=== PATIENT | female | born 1985 | race Caucasian/White ===

== ENCOUNTER 2016-09-22 22:16 | Inpatient (IN) | payer MEDICAID ==
[2016-09-22 22:23] VITALS: BMI 28.8
[2016-09-22] MEDS ORDERED: Penicillin G 5 Million Unit Vial IVPB ONE ×2 (22:41→23:26)
[2016-09-22] MEDS: Lactated Ringer's 1,000 ML IV SCH (22:45)
[2016-09-22 23:15] LABS: BASO % 0.4 % (0.0-2.0); EOS % 0.2 % (0.0-4.0); HEMATOCRIT 37.6 % (34.0-47.0); LYMPH # 1.9 K/uL (1.0-4.3); LYMPH % 31.6 % (20.0-40.0); MEAN CELL VOLUME 77.1 fL (81.0-99.0); MEAN CORPUSCULAR HEMOGLOBIN 24.9 pg (27.0-31.0); MEAN CORPUSCULAR HGB CONC 32.3 g/dL (33.0-37.0); MEAN PLATELET VOLUME 8.4 fL (7.2-11.7); MONO # 0.6 K/uL (0.0-0.8); MONO % 10.7 % (0.0-10.0); RED CELL DISTRIBUTION WIDTH 15.2 % (11.5-14.5); WHITE BLOOD COUNT 5.9 K/uL (4.8-10.8)
--- NOTE | 2016-09-22 23:19 | OBHP ---
Datetime: 09/22/2016 22:49 IP Adm Impression: Postterm, intrauterine ; No Active Labor IP Adm Impression Other: Decreased amnionic fluid IP Admit Plan: Admit to unit IP Admit Plan Other: cervical ripening Admit Comment, IP Provider: 31 yo , LMP 12/16/15, ELISSA 09/22/16, EGA 40 weeks, referred by Tyler Silva MD, for IOL and delivery due to decreased amnionic fluid. (+) AFM; denies LOF, VB; (+) occ ctx - onset after cervical exam during visit earlier today. Pain scale 5/10; although no w, no contractions. Patient now c/o palpitations: denies dyspnea on exertion; dizziness. Palpitations associated when lying supine - improved when turns on her side. Patient did not tell primary OB prov ider of this development; most recent Ob visit was earlier today. care: Dr. Stephania Chen; a bnormal GCT 182; normal 3hr GTT; GBS (+). P Ob: x 2: 2008, male, 5lb 11oz. 2013, female, 7lb 2oz; both, at [facility]; no complicat ions P [employer]: 13 x monthly x 4 PMH: denies PSH: denies NKDA Meds: PNV, Vit D and B12 Soc Hx: denies tobacco, illicit drug or EtOH use. x 9 years. Works as a [employer]. Fam Hx: Mother alive 61 y.o. - HTN, DM. Father - hep C. No known fam h/o cancer P.E.: as above. WD, in NAD. Appears slightly anxious. Awake, alert, oriented to time, person and p lace. and her brother present Assessment: 31 yo P2, 40 weeks, IOL and delivery for decreased amnionic fluid. New onset palpitati ons x 1 week. Same discussed with Dr. Chen who wants the followng: a) EKG;; b) IV hydration; 3) p ain madication. Category 1 tracing. GBS (+). Clinically stable. Plan: 1) Admit 2) NPO 3) IVFs 4) Continuous EFM 5) Admission labs 6) penicillin 7) EKG 8) cytotec 50 micrograms p.o. Q 4 hours, x 2 doses 9) pain medicatoins, upon request 10) Anticipate vaginal delivery - as per Dr. Chen Pelvic Type - PN: Adequate Extremities - PN: Normal Abdomen - PN: Normal Back - PN: Not Done Breast - PN: Not Done Lungs - PN: Normal Heart - PN: Abnormal Thyroid - PN: Not Done Neurologic - PN: Normal HEENT - PN: Normal General - PN: Normal FHR - Baseline A Provider: 160 Contraction Comments Provider: occasional Comments, ACOG Physical Exam: Skin: warm, dry, intact Cardiac: sinus tachycardia Lungs: CTA bilaterally Abdomen: gravid. Soft. Non tender. Fundal height 35 cm Extremities: no calf tenderness bilaterally. 1+ pedal edema, bilaterally; no cyanosis all other systems reviewed - as per HPI Gestation - Est Wks by US: 40.0 IP Hx Assessment: The History has been Reviewed and is Current Vital Signs Provider: Reviewed Vital Signs Provider Details: Elevated H.R. noted; Dr. Chen made aware IP Indication for Induction Oth: Decreased amnionic fluid IP Chief Complaint: Other NICHD Variability Prov Fetus A: Moderate 6-25bpm NICHD Accel Fetus A IP Provider: [id number] FHR Category Provider Fetus A: Category I NICHD Decel Fetus A IP Provider: None Dilatation, Provider: 2-3 Effacement, Provider: 30 Station, Provider: -3 Genitourinary Exam: Normal DTRs - PN: Normal
[2016-09-22 23:34] LABS: CHLORIDE 101 mmol/L (98-107)
[2016-09-22 23:35] LABS: RBC URINE 1 /hpf (0-3); URINE BACTERIA OCC (<OCC); URINE BILIRUBIN NEGATIVE (NEGATIVE); URINE BLOOD NEGATIVE (NEGATIVE); URINE CALCIUM OXALATE CRYSTALS OCC /hpf (<OCC); URINE COLOR Yellow (YELLOW); URINE GLUCOSE (UA) NORMAL (Normal); URINE KETONE NEGATIVE (NEGATIVE); URINE LEUKOCYTE ESTERASE NEG Leu/uL (Negative); URINE PROTEIN 1+ mg/dL (NEGATIVE); URINE UROBILINOGEN NORMAL mg/dL (0.2-1.0); WBC URINE 3 /hpf (0-5)
[2016-09-22 23:35] LABS: POTASSIUM 4.2 mmol/L (3.6-5.2); SODIUM 132 mmol/L (132-148)
[2016-09-22 23:37] LABS: ALB/GLOB RATIO 1.1 (1.0-2.1); AST/SGOT 25 U/L (14-36); BILIRUBIN,TOTAL 0.5 mg/dL (0.2-1.3); BLOOD UREA NITROGEN 14 mg/dL (7-17); CARBON DIOXIDE 20 mmol/L (22-30); GFR AFRICAN-AMERICAN > 60; TOTAL PROTEIN 7.4 g/dL (6.3-8.3)
[2016-09-22 23:38] LABS: ALKALINE PHOSPHATASE 176 U/L (38-126); ALT/SGPT 14 U/L (9-52); GLUCOSE,RANDOM 83 mg/dL (65-105)
[2016-09-22 23:56] LABS: INR 0.9
[2016-09-23] MEDS: Penicillin G Potassium 2.5 MU in Dextrose 5% In Water 50 ML IVPB SCH ×2 (02:59→06:56)
--- NOTE | 2016-09-23 03:40 | CP.PCM.CON ---
<Nate MURILLOBrandi - Last Filed: 09/23/16 03:40> History of Present Illness - History of Present Illness History of Present Illness: Patient is a 31 year old female at 40 weeks gestation, sent by PMD for induction of labor. Hospitalist service was consulted due to patient's symptoms of shortness of breath and palpitations with suspicion for pulmonary embolus. Patient reports that the shortness of breath started one week ago. She describes this as intermittent. She states she notices it while sitting and notices it when the baby is moving around. Patient states the sensation goes away on its own and has lasted at maximum for five minutes. Patient states that she has also had palpitations for the past week. She states that this occurs sometimes while walking, sometimes while sitting, at most once a day. She states it lasts for a couple of minutes before going away. Patient denies chest pain, dizziness, nausea, vomiting. Patient denies recent travel or illness. Patient denies similar symptoms with prior pregnancies. PMD: Stephania Chen PMHx: denies PSHx: denies Fam Hx: mother with HTN, DM Social Hx: denies tobacco, alcohol, drugs; lives with and children Meds: vitamin D, vitamin B12 Review of Systems - Constitutional Constitutional: absent: Chills, Fever, Headache - EENT Eyes: absent: Blurred Vision Ears: absent: Dizziness - Cardiovascular Cardiovascular: Dyspnea, Dyspnea on Exertion, Palpitations. absent: Chest Pain , Chest Pain at Rest, Diaphoresis - Respiratory Respiratory: Dyspnea. absent: Cough - Gastrointestinal Gastrointestinal: absent: Abdominal Pain, Nausea, Vomiting - Genitourinary Genitourinary: absent: Difficulty Urinating - Reproductive: Female Reproductive:Female: Other (in labor at 40 weeks gestation) - Musculoskeletal Musculoskeletal: absent: Joint Swelling - Integumentary Integumentary: absent: Rash, Skin Pain - Neurological Neurological: absent: Dizziness, Focal Weakness Past Patient History - Past Social History Chewing Tobacco Use: No - PSYCHIATRIC Hx Depression: No Hx Emotional Abuse: No Hx Physical Abuse: No Hx Substance Use: No Meds Allergies/Adverse Reactions: Allergies Allergy/AdvReac Type Severity Reaction Status Date / Time No Known Allergies Allergy Verified 08/03/12 13:05 - Medications Medications: Current Medications Lactated Ringer's (Lactated Ringer's) 1,000 mls @ 125 mls/hr IV .Q8H [facility] Last Admin: 09/22/16 22:45 Dose: 125 mls/hr Penicillin G Potassium 2.5 mu/ (Dextrose) 50 mls @ 100 mls/hr IVPB Q4H [facility] Last Admin: 09/23/16 02:59 Dose: 100 mls/hr Physical Exam - Constitutional Appears: Non-toxic, No Acute Distress - Head Exam Head Exam: ATRAUMATIC, NORMOCEPHALIC - Eye Exam Eye Exam: EOMI, Normal appearance, PERRL - ENT Exam ENT Exam: Mucous Membranes Moist - Respiratory Exam Respiratory Exam: Clear to Auscultation Bilateral. absent: Rales, Rhonchi, Wheezes - Cardiovascular Exam Cardiovascular Exam: +S1, +S2 - GI/Abdominal Exam GI & Abdominal Exam: Normal Bowel Sounds, Soft Additional comments: gravid uterus - Extremities Exam Extremities exam: Positive for: pedal edema (bilateral edema, non tender to palpation, negative Kraig's sign). Negative for: calf tenderness - Neurological Exam Neurological exam: Alert - Psychiatric Exam Psychiatric exam: Normal Affect - Skin Skin Exam: Dry, Warm Results - Labs Result Diagrams: 09/22/16 23:11 09/22/16 23:00 Labs: Laboratory Results - last 24 hr 09/22/16 09/22/16 09/22/16 23:00 23:11 23:59 WBC 5.9 RBC 4.87 Hgb 12.1 Hct 37.6 MCV 77.1 L MCH 24.9 L MCHC 32.3 L RDW 15.2 H Plt Count 239 MPV 8.4 Neut % (Auto) 57.1 Lymph % (Auto) 31.6 Winston % (Auto) 10.7 H Eos % (Auto) 0.2 Baso % (Auto) 0.4 Neut # 3.4 Lymph # 1.9 Winston # 0.6 Eos # 0.0 Baso # 0.0 PT 10.5 INR 0.9 APTT 25 Fibrinogen 473 H Sodium 132 Potassium 4.2 Chloride 101 Carbon Dioxide 20 L Anion Gap 15 BUN 14 Creatinine 0.5 L Est GFR ( Amer) > 60 Est GFR (Non-Af Amer) > 60 Random Glucose 83 Calcium 9.0 Total Bilirubin 0.5 AST 25 ALT 14 Alkaline Phosphatase 176 H D Total Protein 7.4 Albumin 3.9 Globulin 3.5 Albumin/Globulin Ratio 1.1 Urine Color Yellow Urine Clarity Hazy Urine pH 6.0 Ur Specific Powder[place] 1.030 Urine Protein 1+ H Urine Glucose (UA) Normal Urine Ketones Negative Urine Blood Negative Urine Nitrate Negative Urine Bilirubin Negative Urine Urobilinogen Normal Ur Leukocyte Esterase Neg Urine WBC (Auto) 3 Urine RBC (Auto) 1 Ur Squamous Epith Cells 1 Calcium Oxalate Crystal Occ H Urine Bacteria Occ H HIV 1&2 Antibody Screen Negative Blood Type AB POSITIVE Antibody Screen Negative Assessment & Plan - Assessment and Plan (Free Text) Assessment: Hospitalist service was consulted for suspicion of pulmonary embolus based on reported symptoms of shortness of breath and palpitations. On examination, patient was not experiencing these symptoms and was resting comfortably. Patient stated that she only experienced these symptoms when she felt the fetus moving and were not persistent, which would make pulmonary embolus less likely as she should have more persistent rather than intermittent symptoms related to movements. Please re-consult as necessary. Patient seen and examined with attending physician, plan discussed with attending physician Dr. Huerta. <Sabas Huerta P - Last Filed: 09/28/16 20:20> Results - Vital Signs Recent Vital Signs: Last Vital Signs Temp 97 F L 09/24/16 15:00 Pulse 75 09/24/16 15:00 Resp 20 09/24/16 15:00 BP 101/62 09/24/16 15:00 Pulse Ox 98 09/24/16 15:00 - Labs Result Diagrams: 09/24/16 06:05 09/24/16 06:05 Attending/Attestation - Attestation I have personally seen and examined this patient.: Yes I have fully participated in the care of the patient.: Yes I have reviewed all pertinent clinical information: Yes
[2016-09-23] MEDS ORDERED: Oxytocin 30 UNIT 500 ML IV ONE (04:03)
[2016-09-23] MEDS ORDERED: Bupivacaine 0.125%/FentaNYL 200 ML EPI ONE (05:28)
[2016-09-23] MEDS ORDERED: Oxytocin 30 UNIT 500 ML IV PRN (05:34)
[2016-09-23] MEDS ORDERED: Bupivacaine HCl 0.25% PF (10 ml) Inj ONE (05:42)
[2016-09-23] MEDS ORDERED: Oxytocin 20 units in LR 2,000 ML IV ONE (06:41)
[2016-09-23] MEDS: Lactated Ringer's 1,000 ML IV SCH (06:56)
--- NOTE | 2016-09-23 07:35 | OBDS ---
DELIVERY PERSONNEL Delivery Doctor: Twyla Ordonez MD Law Enforcement Officer: Meche Cardona RN Anesthesiologist: Fang Quinn MD MATERNAL INFORMATION Delivery Anesthesia: Epidural Medications in Delivery: Methergine 0.2mg IM@0717am; Pitocin 30 units IV Estimated Blood Loss (ml): 150 Placenta Cultured: No Maternal Complications: None RN Comments: Liveborn Baby Boy. 9-9. Provider Comments: [2002] for induction of labor due to decreased amount of amniotic fluid at t erm 40.1 weeks delivered spontaneously per vagina to a live baby boy 9/9 with an intact perin eum. placenta expelled spontaneously intact, uterus firm and hard. EBL 150 CC. patient had a continou s epidural anesthesia. LABOR SUMMARY EDC: 09/21/2016 00:00 No. Babies in Womb: 1 Attempted: No Labor Anesthesia: Epidural LABOR INFORMATION Reason for Induction: Oligohydramnios Onset of Labor: 09/23/2016 00:00 Complete Dilatation: 09/23/2016 06:38 Cervical Ripening Agents: Cytotec @ (Annotations: 50 mcg) Oxytocin: Induction Group B Beta Strep: Positive Antibiotics # of Doses: 3 Antibiotics Time of Last Dose: 0651 Steroids Given: None Reason Steroids Not Administered: Not Applicable MEMBRANES Membranes Rupture Method: Spontaneous Rupture of Membranes: 09/23/2016 07:09 Length of Rupture (hrs): 0.02 Amniotic Fluid Color: Clear Amniotic Fluid Amount: Small Amniotic Fluid Odor: Normal STAGES OF LABOR Stage 1 hrs: 6 Stage 1 min: 38 Stage 2 hrs: 0 Stage 2 min: 32 Stage 3 hrs: 0 Stage 3 min: 6 Total Time in Labor hrs: 7 Total Time in Labor min: 16 VAGINAL DELIVERY Episiotomy: None Laceration Extension: N/A Laceration Type: None Laceration Repair: Not Applicable Initial Vag Sponge Count: 10 Final Vag Sponge Count: 10 Initial Vag Sharps Count: 0 Final Vag Sharps Count: 0 Sponge Count Correct: Yes; Vaginal Sweep Performed Sharps Count Correct: N/A Count Comment: no sharp used. BABY A INFORMATION Delivery Date/Time: 09/23/2016 07:10 Method of Delivery: Vaginal Born in Route : No : N/A Forceps: N/A Vacuum Extraction: N/A Shoulder Dystocia : No SHOULDER DYSTOCIA BABY A Infant Delivery Date/Time: 09/23/2016 07:10 PRESENTATION/POSITION BABY A Presentation: Cephalic Cephalic Presentation: Vertex Vertex Position: Left Occipital Anterior Breech Presentation: N/A PLACENTA INFORMATION BABY A Placenta Delivery Time : 09/23/2016 07:16 Placenta Method of Delivery: Spontaneous Placenta Status: Delivered SCORES BABY A Heart Rate 1 min: >100 bpm Resp Effort 1 min: Good Cry Reflex Irritability 1 min: Cough or Sneeze or Pulls Away Muscle Tone 1 min: Active Motion Color 1 min: Body [place], Extremities Blue Resuscitation Effort 1 min: N/A SCORE 1 MIN: 9 Heart Rate 5 min: >100 bpm Resp Effort 5 min: Good Cry Reflex Irritability 5 min: Cough or Sneeze or Pulls Away Muscle Tone 5 min: Active Motion Color 5 min: Body [place], Extremities Blue Resuscitation Effort 5 min: N/A SCORE 5 MIN: 9 INFORMATION BABY A Gestational Age at Delivery: 40.2 Gestational Status: Post-term Infant Outcome : Liveborn Infant Condition : Stable Sex: Male IDENTIFICATION/MEDS BABY A ID Band Number: [id number] ID Band Location: Left Leg; Left Arm Sensor Applied: Yes Sensor Number: [id number] Sensor Location : Cord Clamp Vitamin K Given : Not Given Erythromycin Given: Not Given WEIGHT/LENGTH BABY A Birthweight (gms): 2925 Infant Weight (lb): 6 Infant Weight (oz): 7 Length Inches: 19.50 Length cms: 49.5 CORD INFORMATION BABY A No. Cord Vessels: 3 Nuchal Cord : N/A Cord Blood Taken: Yes Infant Suction: Mouth; Nose
[2016-09-23] MEDS: Multiple Vitamins Tab PO SCH (09:47)
[2016-09-23] MEDS: Bisacodyl 5mg EC Tab PO SCH (09:58)
[2016-09-23] MEDS ORDERED: Bisacodyl 5mg EC Tab PO SCH (10:00)
[2016-09-23 16:18] LABS: HEMATOCRIT 37.6 % (34.0-47.0); MEAN CELL VOLUME 76.2 fL (81.0-99.0); MEAN CORPUSCULAR HEMOGLOBIN 25.5 pg (27.0-31.0); MEAN CORPUSCULAR HGB CONC 33.4 g/dL (33.0-37.0)
[2016-09-23 16:27] LABS: WHITE BLOOD COUNT 9.8 K/uL (4.8-10.8)
[2016-09-23 16:32] VITALS: O2SAT 98
--- NOTE | 2016-09-23 17:26 | CP.PCM.PN ---
<Em Baumann - Last Filed: 09/23/16 17:22> Subjective - Date & Time of Evaluation Date of Evaluation: 09/23/16 Time of Evaluation: 17:22 - Subjective Subjective: Patient seen and examined at bedside. Patient had vaginal delivery without complications this morning. She stated palpitations improved following delivery. Patient does note she continues to have intermittent palpitations and admits to onset associated with anxiety. She denies shortness of breath. Patient denies other symptoms including cough, chest pain at rest or with deep inspiration, abdominal pain, nausea, vomiting. She admits to feeling lightheaded since giving and has not ambulated yet. Objective - Vital Signs/Intake and Output Vital Signs (last 24 hours): Temp Pulse Resp BP Pulse Ox 96.9 F L 82 18 99/65 L 98 09/23/16 16:00 09/23/16 16:00 09/23/16 16:00 09/23/16 16:00 09/23/16 16:00 - Medications Medications: Current Medications Bisacodyl (Dulcolax) 5 mg PO DAILY [facility] Last Admin: 09/23/16 09:58 Dose: 5 mg Lactated Ringer's (Lactated Ringer's) 1,000 mls @ 125 mls/hr IV .Q8H [facility] Last Admin: 09/23/16 06:56 Dose: 125 mls/hr Oxytocin (Pitocin) 500 mls @ 2 mls/hr IV .Q24H PRN; Protocol; 0.002 UNIT/MIN PRN Reason: Labor Last Admin: 09/23/16 04:00 Dose: 2 mls/hr Ibuprofen (Motrin Tab) 600 mg PO Q6H PRN PRN Reason: Pain, moderate (4-7) Last Admin: 09/23/16 09:48 Dose: 600 mg Multivitamins (Hexavitamin) 1 tab PO DAILY [facility] Last Admin: 09/23/16 09:47 Dose: 1 tab - Labs Labs: 09/23/16 16:16 09/22/16 23:00 PT 10.5 SECONDS (9.7-12.2) 09/22/16 23:11 INR 0.9 09/22/16 23:11 APTT 25 SECONDS (21-34) 09/22/16 23:11 - Constitutional Appears: Non-toxic, No Acute Distress - Head Exam Head Exam: ATRAUMATIC, NORMAL INSPECTION, NORMOCEPHALIC - Eye Exam Eye Exam: EOMI, Normal appearance, PERRL - ENT Exam ENT Exam: Mucous Membranes Moist - Neck Exam Neck Exam: Full ROM, Normal Inspection - Respiratory Exam Respiratory Exam: Clear to Ausculation Bilateral, NORMAL BREATHING PATTERN. absent: Rales, Rhonchi, Wheezes - Cardiovascular Exam Cardiovascular Exam: +S1, +S2. absent: Tachycardia, Murmur - GI/Abdominal Exam GI & Abdominal Exam: Soft, Normal Bowel Sounds - Extremities Exam Extremities Exam: Normal Inspection. absent: Pedal Edema, Tenderness - Neurological Exam Neurological Exam: Alert, Awake, Oriented x3 - Psychiatric Exam Psychiatric exam: Normal Affect, Normal Mood - Skin Skin Exam: Intact, Normal Color Assessment and Plan - Assessment and Plan (Free Text) Assessment: Tachycardia Heart Rate of 77-82 (09/23) EKG (09/22): sinus tachycardia at rate of 108. Repeat EKG ordered CBC stable, hemoglobin of 12.6 Saturating well Will continue to follow <Isaac Escobar H - Last Filed: 09/23/16 17:50> Objective - Vital Signs/Intake and Output Vital Signs (last 24 hours): Temp Pulse Resp BP Pulse Ox 96.9 F L 82 18 99/65 L 98 09/23/16 16:00 09/23/16 16:00 09/23/16 16:00 09/23/16 16:00 09/23/16 16:00 - Medications Medications: Current Medications Bisacodyl (Dulcolax) 5 mg PO DAILY [facility] Last Admin: 09/23/16 09:58 Dose: 5 mg Lactated Ringer's (Lactated Ringer's) 1,000 mls @ 125 mls/hr IV .Q8H [facility] Last Admin: 09/23/16 06:56 Dose: 125 mls/hr Oxytocin (Pitocin) 500 mls @ 2 mls/hr IV .Q24H PRN; Protocol; 0.002 UNIT/MIN PRN Reason: Labor Last Admin: 09/23/16 04:00 Dose: 2 mls/hr Ibuprofen (Motrin Tab) 600 mg PO Q6H PRN PRN Reason: Pain, moderate (4-7) Last Admin: 09/23/16 09:48 Dose: 600 mg Multivitamins (Hexavitamin) 1 tab PO DAILY [facility] Last Admin: 09/23/16 09:47 Dose: 1 tab - Labs Labs: 09/23/16 16:16 09/22/16 23:00 PT 10.5 SECONDS (9.7-12.2) 09/22/16 23:11 INR 0.9 09/22/16 23:11 APTT 25 SECONDS (21-34) 09/22/16 23:11 Attending/Attestation - Attestation I have personally seen and examined this patient.: Yes I have fully participated in the care of the patient.: Yes I have reviewed all pertinent clinical information, including history, physical exam and plan: Yes Notes (Text): Medical attending: Patient was seen and examined by me, agrees the above note by medical record consultant. The patient is status post vaginal delivery, she explains to us that she's feeling substantially better now. She also explains that earlier she was having palpitations and some shortness of breath, however this is resolved now. She says that her pain is controlled and also that she is tolerating her diet as well We reviewed her recent lab work and what were to do his regular repeat the lab work just to make sure she's not having any electrolyte disturbances or is anemic. Also will repeat a 12-lead EKG as well. Thank you very much, Isaac Escobar
--- NOTE | 2016-09-23 18:53 | CARD ---
APPROVED REPORT EKG Measurement Heart [id number] <Conclusion> Sinus tachycardia with short [place] Otherwise normal ECG
[2016-09-24 06:21] LABS: CHLORIDE 105 mmol/L (98-107); SODIUM 136 mmol/L (132-148)
[2016-09-24 06:23] LABS: EOS # 0.1 K/uL (0.0-0.7); GFR AFRICAN-AMERICAN > 60; LYMPH # 2.7 K/uL (1.0-4.3); MEAN PLATELET VOLUME 8.2 fL (7.2-11.7)
[2016-09-24 06:24] LABS: ALB/GLOB RATIO 0.9 (1.0-2.1); ALKALINE PHOSPHATASE 120 U/L (38-126); ALT/SGPT 17 U/L (9-52); AST/SGOT 20 U/L (14-36); BILIRUBIN,TOTAL < 0.1 mg/dL (0.2-1.3); BLOOD UREA NITROGEN 11 mg/dL (7-17); CALCIUM 8.7 mg/dl (8.6-10.4); CARBON DIOXIDE 23 mmol/L (22-30); GLUCOSE,RANDOM 74 mg/dL (65-105); TOTAL PROTEIN 5.7 g/dL (6.3-8.3)
[2016-09-24 06:27] LABS: BASO % 0.3 % (0.0-2.0); EOS % 1.5 % (0.0-4.0); HEMATOCRIT 33.4 % (34.0-47.0); LYMPH % 32.9 % (20.0-40.0); MEAN CELL VOLUME 76.5 fL (81.0-99.0); MEAN CORPUSCULAR HEMOGLOBIN 25.6 pg (27.0-31.0); MEAN CORPUSCULAR HGB CONC 33.5 g/dL (33.0-37.0); MONO # 0.9 K/uL (0.0-0.8); MONO % 10.6 % (0.0-10.0); RED CELL DISTRIBUTION WIDTH 15.2 % (11.5-14.5); WHITE BLOOD COUNT 8.1 K/uL (4.8-10.8)
--- NOTE | 2016-09-24 07:14 | CP.PCM.PN ---
<Em Baumann - Last Filed: 09/24/16 14:25> Subjective - Date & Time of Evaluation Date of Evaluation: 09/24/16 Time of Evaluation: 07:14 - Subjective Subjective: Patient seen and examined at bedside. Patient is resting comfortably. She states the palpitations have resolved. She denies shortness of breath and chest pain. Patient reports she was able to ambulate without issue. No acute events per nursing. Objective - Vital Signs/Intake and Output Vital Signs (last 24 hours): Temp Pulse Resp BP Pulse Ox 96.9 F L 82 18 99/65 L 98 09/23/16 16:00 09/23/16 16:00 09/23/16 16:00 09/23/16 16:00 09/23/16 16:00 - Medications Medications: Current Medications Bisacodyl (Dulcolax) 5 mg PO DAILY [facility] Last Admin: 09/23/16 09:58 Dose: 5 mg Lactated Ringer's (Lactated Ringer's) 1,000 mls @ 125 mls/hr IV .Q8H [facility] Last Admin: 09/23/16 06:56 Dose: 125 mls/hr Oxytocin (Pitocin) 500 mls @ 2 mls/hr IV .Q24H PRN; Protocol; 0.002 UNIT/MIN PRN Reason: Labor Last Admin: 09/23/16 04:00 Dose: 2 mls/hr Ibuprofen (Motrin Tab) 600 mg PO Q6H PRN PRN Reason: Pain, moderate (4-7) Last Admin: 09/23/16 09:48 Dose: 600 mg Multivitamins (Hexavitamin) 1 tab PO DAILY [facility] Last Admin: 09/23/16 09:47 Dose: 1 tab - Labs Labs: 09/24/16 06:05 09/24/16 06:05 PT 10.5 SECONDS (9.7-12.2) 09/22/16 23:11 INR 0.9 09/22/16 23:11 APTT 25 SECONDS (21-34) 09/22/16 23:11 - Constitutional Appears: Non-toxic, No Acute Distress - Head Exam Head Exam: ATRAUMATIC, NORMAL INSPECTION, NORMOCEPHALIC - Eye Exam Eye Exam: EOMI, Normal appearance, PERRL - ENT Exam ENT Exam: Mucous Membranes Moist - Neck Exam Neck Exam: Full ROM, Normal Inspection - Respiratory Exam Respiratory Exam: Clear to Ausculation Bilateral, NORMAL BREATHING PATTERN. absent: Rales, Rhonchi, Wheezes - Cardiovascular Exam Cardiovascular Exam: +S1, +S2 - GI/Abdominal Exam GI & Abdominal Exam: Soft, Normal Bowel Sounds. absent: Tenderness - Extremities Exam Extremities Exam: Normal Inspection. absent: Pedal Edema, Tenderness - Neurological Exam Neurological Exam: Alert, Awake, Oriented x3 - Psychiatric Exam Psychiatric exam: Normal Affect, Normal Mood - Skin Skin Exam: Intact, Normal Color, Warm Assessment and Plan - Assessment and Plan (Free Text) Assessment: Tachycardia Heart Rate of 87-60 Repeat EKG (09/22): NSR rate of 72 EKG (09/22): sinus tachycardia at rate of 108. Repeat EKG ordered CBC stable, hemoglobin of 11.2 Saturating well Patient medically stable. Thank you for consult. Medicine team signing off. Please re-consult if needed. <Isaac Escobar - Last Filed: 09/24/16 16:00> Objective - Vital Signs/Intake and Output Vital Signs (last 24 hours): Temp Pulse Resp BP Pulse Ox 98.1 F 60 18 88/53 L 98 09/24/16 08:00 09/24/16 08:00 09/24/16 08:00 09/24/16 08:00 09/24/16 08:00 - Medications Medications: Current Medications Bisacodyl (Dulcolax) 5 mg PO DAILY [facility] Last Admin: 09/24/16 09:51 Dose: 5 mg Lactated Ringer's (Lactated Ringer's) 1,000 mls @ 125 mls/hr IV .Q8H [facility] Last Admin: 09/23/16 06:56 Dose: 125 mls/hr Oxytocin (Pitocin) 500 mls @ 2 mls/hr IV .Q24H PRN; Protocol; 0.002 UNIT/MIN PRN Reason: Labor Last Admin: 09/23/16 04:00 Dose: 2 mls/hr Ibuprofen (Motrin Tab) 600 mg PO Q6H PRN PRN Reason: Pain, moderate (4-7) Last Admin: 09/24/16 09:52 Dose: 600 mg Multivitamins (Hexavitamin) 1 tab PO DAILY [facility] Last Admin: 09/24/16 09:51 Dose: 1 tab - Labs Labs: 09/24/16 06:05 09/24/16 06:05 PT 10.5 SECONDS (9.7-12.2) 09/22/16 23:11 INR 0.9 09/22/16 23:11 APTT 25 SECONDS (21-34) 09/22/16 23:11 Attending/Attestation - Attestation I have personally seen and examined this patient.: Yes I have fully participated in the care of the patient.: Yes I have reviewed all pertinent clinical information, including history, physical exam and plan: Yes Notes (Text): 09/24/16 15:54 Medical Attending: Patient was seen and examined by me. Agree with the above note by the resident. She is doing well. She was able to ambulate in the room without assistance.She denied chest pain and denied shortness of breath. Reviewed lab work and it is ok. From what I understand RECORD TESTER is planning on DC soon and I think this is ok thank you Isaac Escobar
[2016-09-24] MEDS: Bisacodyl 5mg EC Tab PO SCH (09:51)
[2016-09-24] MEDS: Multiple Vitamins Tab PO SCH (09:51)
[2016-09-24 16:15] VITALS: BP 101/62; PULSE 75; RESP 20; TEMP 97
--- NOTE | 2016-09-24 21:05 | OBPPN ---
Datetime: 09/24/2016 20:54 PP Pain Prov: Within normal limits PP Nausea Prov: Denies PP Flatus Prov: Yes PP BM Prov: Yes PP Breasts Prov: Normal PP Heart Prov: Normal PP Lungs Prov: Normal PP Abdomen/Uterus Prov: Normal PP Lochia Prov: Normal PP Vulva/Perineum Prov: Normal PP CVA Tenderness Prov: Normal PP Extremities Prov: Normal PP Progress Prov: Normal PP Impression Prov: Normal progression PP Plan Prov: Continue present management PP Progress Note Prov: 1ST POSTOP DAY : AFEBRILE, AMBULATORY, BREASTS ARE SOFT, LACTATING HER BABY, UTERUS FIRM , HARD, EXTREMITIES: NO EDEMA, NO TENDERNESS. LOCHIA MINIMAL. HAD BM TODAY. DISCHARGED H OME IN AM. TO THE OFFICE FOR CHECKUP IN 4 WEEKS. CONTINUE VITAMINS. IP PP Procedures: None Vital Signs Provider PP: Reviewed; Within Normal Limits
[2016-09-25] MEDS: Multiple Vitamins Tab PO SCH (10:04)
[2016-09-25] MEDS: Bisacodyl 5mg EC Tab PO SCH (10:06)
--- NOTE | 2016-11-17 14:44 | CARD ---
APPROVED REPORT EKG Measurement Heart [id number] <Conclusion> Normal sinus rhythm Normal ECG
== END 2016-09-25 11:25 | disposition home or self-care (01) | DRG 373 ==
LOC: C.EROB 22:16 → C.4D 22:50 → C.4M 09-23 09:39
PROVIDERS: ADMIT Obstetrics & Gynecology; ATTEND Obstetrics & Gynecology
PROC: 10E0XZZ Delivery of Products of Conception, External Approach (ICD-10-PCS; principal; 2016-09-22)
PROC: 3E033VJ Introduction of Other Hormone into Peripheral Vein, Percutaneous Approach (ICD-10-PCS; 2016-09-22)
DX: O41.03X0 Oligohydramnios, third trimester, not applicable or unspecified (principal); O99.344 Other mental disorders complicating childbirth; F41.9 Anxiety disorder, unspecified; O48.0 Post-term pregnancy; Z37.0 Single live birth; Z3A.40 40 weeks gestation of pregnancy; O99.824 Streptococcus B carrier state complicating childbirth; Z83.3 Family history of diabetes mellitus; Z82.49 Family history of ischemic heart disease and other diseases of the circulatory system; R00.2 Palpitations